=== PATIENT | female | born 1990 | race Caucasian/White ===

== ENCOUNTER 2020-08-24 12:57 | Outpatient (CLI) | payer BC ==
[2020-08-24 19:17] LABS: SARS-CoV-2 PCR by NAA Not Detected (NotDetected)
== END 2020-08-24 12:58 | disposition home or self-care (01) ==
LOC: CSHLAB 12:57
PROVIDERS: ATTEND Student in an Organized Health Care Education/Training Program
DX: Z20.822 Contact with and (suspected) exposure to COVID-19 (principal)
CPT/HCPCS: 87635; U0003; U0005

== ENCOUNTER 2020-08-29 10:07 | Inpatient (IN) | payer BC ==
[2020-08-29] MEDS ORDERED: Ondansetron PF 4 MG/2 ML Vial IVP PRN ×3 (11:00→17:42)
[2020-08-29] MEDS ORDERED: Promethazine HCl 25 MG/ML VIAL IM PRN ×2 (11:00→14:24)
[2020-08-29] MEDS ORDERED: CEFAZOLIN 2 GM in Premix Bag 1 BAG IVPB SCH (11:00)
[2020-08-29] MEDS ORDERED: Lactated Ringer's 1,000 ML IV SCH (11:00)
[2020-08-29] MEDS ORDERED: Famotidine/PF 20 mg/2ml Vial SLOW IVP PRN (11:00)
[2020-08-29] MEDS ORDERED: Bicitra 30 ML UDCUP PO PRN (11:00)
[2020-08-29] MEDS ORDERED: hydrALAZINE 20 MG/ML VIAL SLOW IVP PRN ×2 (11:00→17:42)
[2020-08-29 11:06] VITALS: BMI 32.8
[2020-08-29 11:16] LABS: Hemoglobin 12.6 g/dL (12.0-15.5); Mean Corpuscular HGB CONC 33.5 g/dL (32.0-36.0); Mean Corpuscular Hemoglobin 31.6 pg (27.0-33.0); Mean Corpuscular Volume 94.2 fl (81.6-98.3); Mean Platelet Volume 11.5 fl (7.4-10.4); Platelet Count 233 10x3/uL (150-450); RBC Distribution Width 14.9 % (11.5-14.5); Red Blood Cell (RBC) Count 3.99 10x6/uL (3.90-5.03)
[2020-08-29] MEDS ORDERED: Morphine PF 10 MG/10 ML VIAL ONE (11:38)
[2020-08-29] MEDS ORDERED: PHENYLEPHRINE-NS 100 MCG/ML 10 ML SYRINGE ONE (11:39)
[2020-08-29] MEDS ORDERED: Oxytocin 10 UNITS/ML VIAL ONE (11:39)
[2020-08-29] MEDS ORDERED: Ondansetron PF 4 MG/2 ML Vial ONE (11:39)
[2020-08-29] MEDS ORDERED: Ketorolac Tromethamine 30 MG/ML VIAL ONE (11:39)
[2020-08-29] MEDS ORDERED: ePHEDrine Sulfate 50 MG/10 ML VIAL ONE (11:39)
[2020-08-29] MEDS ORDERED: Dexamethasone 4 mg/ml Vial ONE (11:39)
[2020-08-29 11:54] LABS: Hep B Surf Ag Non-Reactive S/CO (NonReactive); Syphilis Antibody Nonreactive (Nonreactive); Syphilis Antibody Index 0.02 S/CO (<1.00 Non-Reactive)
[2020-08-29 11:59] LABS: HBSAg Index 0.17 S/CO (0-0.99)
[2020-08-29] MEDS ORDERED: Naloxone HCl 0.4 mg/ml Vial IV PRN (14:24)
[2020-08-29] MEDS ORDERED: L&D-Morphine 4 MG/ML VIAL SLOW IVP PRN (14:24)
[2020-08-29] MEDS ORDERED: Meperidine HCl/PF 25 MG/ML VIAL SLOW IVP PRN (14:24)
[2020-08-29] MEDS ORDERED: Naloxone HCl 0.4 mg/ml Vial IVP PRN ×2 (14:24)
[2020-08-29] MEDS ORDERED: Ondansetron HCl/PF 4 MG/2 ML Vial IVP PRN (14:24)
[2020-08-29] MEDS ORDERED: Promethazine HCl 25 MG SUPP PR PRN (14:24)
[2020-08-29] MEDS ORDERED: diphenhydrAMINE 50 MG/ML VIAL IVP PRN (14:24)
[2020-08-29] MEDS ORDERED: Communication Order-Pharmacy FS SCH (14:30)
[2020-08-29] MEDS ORDERED: Ketorolac Tromethamine 30 MG/ML VIAL IVP SCH (14:30)
[2020-08-29] MEDS ORDERED: Hydrocerin (Eucerin) Cream 120 gm Jar TOP PRN (16:13)
[2020-08-29] MEDS ORDERED: Bisacodyl 10 MG SUPP PR PRN (17:42)
[2020-08-29] MEDS ORDERED: Adacel (T-DAP) 0.5 ML SYRINGE IM ONE (17:42)
[2020-08-29] MEDS ORDERED: Simethicone Chewable 80 MG TAB PO PRN (17:42)
[2020-08-29] MEDS ORDERED: Zolpidem Tartrate 5 MG TAB PO PRN (17:42)
[2020-08-29] MEDS ORDERED: diphenhydrAMINE 25 MG CAP PO PRN (17:42)
[2020-08-29] MEDS ORDERED: HYDROcodone/Acetaminophen 5/325 mg Tablet PO PRN (17:42)
[2020-08-29] MEDS ORDERED: Acetaminophen 325 MG TAB PO PRN (17:42)
[2020-08-29] MEDS ORDERED: Lanolin Ointment 7 GM TUBE TOP PRN (17:42)
[2020-08-29] MEDS: Docusate Calcium (SURFAK) 240 MG CAP PO SCH (21:42)
[2020-08-29] MEDS: Ferrous Sulfate 325 MG TAB PO SCH (21:42)
[2020-08-29] MEDS: Ketorolac Tromethamine 30 MG/ML VIAL IVP PRN (21:43)
[2020-08-30] MEDS: Ketorolac Tromethamine 30 MG/ML VIAL IVP PRN ×2 (05:23→13:25)
[2020-08-30 07:42] LABS: Hemoglobin 11.5 g/dL (12.0-15.5); Mean Corpuscular HGB CONC 33.8 g/dL (32.0-36.0); Mean Corpuscular Hemoglobin 31.8 pg (27.0-33.0); Mean Corpuscular Volume 93.9 fl (81.6-98.3); Mean Platelet Volume 12.1 fl (7.4-10.4); Platelet Count 181 10x3/uL (150-450); RBC Distribution Width 14.6 % (11.5-14.5); Red Blood Cell (RBC) Count 3.62 10x6/uL (3.90-5.03); White Blood Cell (WBC) Count 19.1 10x3/uL (3.5-10.5)
[2020-08-30] MEDS: Ferrous Sulfate 325 MG TAB PO SCH (08:06)
[2020-08-30] MEDS: Prenatal Vitamin 1 TAB PO SCH (08:52)
[2020-08-30] MEDS: Docusate Calcium (SURFAK) 240 MG CAP PO SCH ×2 (08:52→21:46)
[2020-08-30] MEDS: HYDROcodone/Acetaminophen 5/325 mg Tablet PO PRN ×2 (08:53→19:40)
[2020-08-30] MEDS: Ibuprofen 800 MG TAB PO SCH (21:45)
[2020-08-31] MEDS: Ferrous Sulfate 325 MG TAB PO SCH ×3 (03:57→23:00)
[2020-08-31] MEDS: HYDROcodone/Acetaminophen 5/325 mg Tablet PO PRN ×4 (04:24→22:01)
[2020-08-31] MEDS: Ibuprofen 800 MG TAB PO SCH ×3 (06:41→21:59)
[2020-08-31] MEDS: Prenatal Vitamin 1 TAB PO SCH (08:42)
[2020-08-31] MEDS: Docusate Calcium (SURFAK) 240 MG CAP PO SCH ×2 (08:42→21:59)
[2020-09-01] MEDS: Ibuprofen 800 MG TAB PO SCH ×2 (05:13→14:40)
[2020-09-01] MEDS: Prenatal Vitamin 1 TAB PO SCH (08:14)
[2020-09-01] MEDS: Docusate Calcium (SURFAK) 240 MG CAP PO SCH (08:14)
[2020-09-01] MEDS: Ferrous Sulfate 325 MG TAB PO SCH (08:15)
[2020-09-01 11:35] VITALS: BP 101/63; TEMP 98.8
== END 2020-09-01 17:05 | disposition home or self-care (01) | DRG 788 ==
LOC: CSHLD 10:07 → CSHPP 17:40
PROVIDERS: ADMIT Student in an Organized Health Care Education/Training Program; ATTEND Student in an Organized Health Care Education/Training Program
PROC: 10D00Z1 Extraction of Products of Conception, Low, Open Approach (ICD-10-PCS; principal; 2020-08-29)
DX: O30.033 Twin pregnancy, monochorionic/diamniotic, third trimester (principal); O36.5931 Maternal care for other known or suspected poor fetal growth, third trimester, fetus 1; O36.5932 Maternal care for other known or suspected poor fetal growth, third trimester, fetus 2; Z20.822 Contact with and (suspected) exposure to COVID-19; O99.284 Endocrine, nutritional and metabolic diseases complicating childbirth; E02 Subclinical iodine-deficiency hypothyroidism; Z3A.34 34 weeks gestation of pregnancy; Z37.2 Twins, both liveborn
CPT/HCPCS: 36415; 51702; 85027; 86780; 86850; 86900; 86901; 87340; 88307; J1100; J1885; J2274; J2405